=== PATIENT | female | born 1955 | race Caucasian/White ===

== ENCOUNTER → 2022-09-25 | Outpatient (REF) | payer SELFPAY ==
[2022-09-25 17:30] LABS: BASO % 0.7 % (0.0-1.0); EOS % 0.9 % (0.0-3.0); HEMATOCRIT 44.5 % (36.0-47.0); HEMOGLOBIN 14.9 g/dl (12.0-15.5); LYMPH # 1.5 10^3/uL (1.5-5.0); LYMPH % 35.7 % (24.0-44.0); MEAN CORPUSCULAR HEMOGLOBIN 29.8 pg (27.0-33.0); MEAN CORPUSCULAR HGB CONC 33.5 g/dl (32.0-36.5); MONO # 0.4 10^3/uL (0.0-0.8); MONO % 9.6 % (2.0-8.0); NEUTROPHILS # 2.3 10^3/uL (1.5-8.5); NEUTROPHILS % 52.6 % (36.0-66.0); PLATELET COUNT, AUTOMATED 271 10^3/uL (150-450); WHITE BLOOD COUNT 4.3 10^3/uL (4.0-10.0)
[2022-09-25 18:29] LABS: ALBUMIN 3.9 G/DL (3.2-5.2); ALKALINE PHOSPHATASE 57 U/L (46-116); ALT/SGPT 26 U/L (7.0-40); AST/SGOT 15 U/L (<34); BILIRUBIN,TOTAL 0.6 MG/DL (0.3-1.2); BLOOD UREA NITROGEN 34 MG/DL (9-23); CALCIUM LEVEL 10.1 MG/DL (8.3-10.6); CARBON DIOXIDE LEVEL 32 MMOL/L (20-31); CHLORIDE LEVEL 93 MMOL/L (98-107); CHOLESTEROL LEVEL 270 MG/DL (<200); CHOLESTEROL RISK RATIO 4.75 (<5); CREATININE FOR GFR 0.97 MG/DL (0.55-1.30); GLOMERULAR FILTRATION RATE > 60.0 (>45); HDL CHOLESTEROL 56.8 MG/DL (>40); NON-HDL-C 213.2 MG/DL; POTASSIUM SERUM 4.5 MMOL/L (3.5-5.1); SODIUM LEVEL 133 MMOL/L (136-145); THYROID STIMULATING HORMONE 0.996 uIU/ML (0.55-4.78); TOTAL 25(OH) VITAMIN D 31.4 NG/ML (20.0-100.0); TOTAL PROTEIN 6.9 G/DL (5.7-8.2); TRIGLYCERIDES LEVEL 121 MG/DL (<150)
[2022-09-25 19:03] LABS: HEMOGLOBIN A1c > 14.0 % (4.0-6.0)
[2022-09-25 19:55] LABS: GLUCOSE, FASTING 414 MG/DL (74-106)
== END ==
LOC: M LAB REF 16:23
PROVIDERS: ATTEND Nurse Practitioner Family
DX: R00.2 Palpitations (principal); E55.9 Vitamin D deficiency, unspecified; R53.83 Other fatigue; E66.3 Overweight

== ENCOUNTER → 2023-01-29 | Outpatient (REF) | payer SELFPAY | LOC: M LAB REF 16:14 | PROVIDERS: ATTEND Nurse Practitioner Family | DX: Z20.1 Contact with and (suspected) exposure to tuberculosis (principal) ==

== ENCOUNTER → 2023-08-27 | Outpatient (CLI) | payer MEDICAID | LOC: M PLAIMG 09:07 | PROVIDERS: ATTEND Nurse Practitioner Family | DX: R06.00 Dyspnea, unspecified (principal); R06.2 Wheezing ==

== ENCOUNTER → 2023-08-27 | Outpatient (REF) | payer MEDICAID ==
[2023-08-27 14:00] LABS: VITAMIN B12 LEVEL 1085 PG/ML (211-911)
[2023-08-27 14:06] LABS: ALBUMIN 3.7 G/DL (3.2-5.2); ALKALINE PHOSPHATASE 46 U/L (46-116); ALT/SGPT 16 U/L (7.0-40); AST/SGOT 11 U/L (<34); BILIRUBIN,TOTAL 0.5 MG/DL (0.3-1.2); BLOOD UREA NITROGEN 28 MG/DL (9-23); CARBON DIOXIDE LEVEL 30 MMOL/L (20-31); CHLORIDE LEVEL 97 MMOL/L (98-107); CHOLESTEROL LEVEL 113 MG/DL (<200); CREATININE FOR GFR 0.99 MG/DL (0.55-1.30); FOLATE > 24.0 NG/ML (>5.4); GLOMERULAR FILTRATION RATE 59.7 (>45); GLUCOSE, FASTING 470 MG/DL (74-106); HDL CHOLESTEROL 30.5 MG/DL (>40); LDL CHOLESTEROL 64.3 MG/DL (<100); NON-HDL-C 82.5 MG/DL; POTASSIUM SERUM 6.2 MMOL/L (3.5-5.1); SODIUM LEVEL 131 MMOL/L (136-145); TOTAL PROTEIN 6.9 G/DL (5.7-8.2); TRIGLYCERIDES LEVEL 91 MG/DL (<150)
== END ==
LOC: M LAB REF 12:03
PROVIDERS: ATTEND Nurse Practitioner Family
DX: E78.00 Pure hypercholesterolemia, unspecified (principal); M79.89 Other specified soft tissue disorders; E11.40 Type 2 diabetes mellitus with diabetic neuropathy, unspecified

== ENCOUNTER → 2024-01-13 | Outpatient (CLI) | payer MEDICAID | LOC: M CARPUL 10:25 | PROVIDERS: ATTEND Nurse Practitioner Family | DX: I50.9 Heart failure, unspecified (principal) ==

== ENCOUNTER → 2024-01-24 | Outpatient (CLI) | payer MEDICAID | LOC: M WHC 12:55 | PROVIDERS: ATTEND Nurse Practitioner Family | DX: Z12.31 Encounter for screening mammogram for malignant neoplasm of breast (principal); M81.0 Age-related osteoporosis without current pathological fracture ==

== ENCOUNTER → 2024-02-14 | Outpatient (REF) | payer MEDICAID ==
[2024-02-14 13:44] LABS: BLOOD UREA NITROGEN 28 MG/DL (9-23); CALCIUM LEVEL 10.1 MG/DL (8.3-10.6); CARBON DIOXIDE LEVEL 32 MMOL/L (20-31); CHLORIDE LEVEL 101 MMOL/L (98-107); CREATININE FOR GFR 1.15 MG/DL (0.55-1.30); GLOMERULAR FILTRATION RATE > 60.0 (>45); GLUCOSE, FASTING 161 MG/DL (74-106); SODIUM LEVEL 137 MMOL/L (136-145)
[2024-02-14 13:50] LABS: HEMOGLOBIN A1c 7.5 % (4.0-6.0)
== END ==
LOC: M LAB REF 12:25
PROVIDERS: ATTEND Nurse Practitioner Family
DX: E11.9 Type 2 diabetes mellitus without complications (principal)

== ENCOUNTER 2024-03-05 03:57 | Observation (INO) | payer MEDICAID, OTHER ==
[~2024-03-05] VITALS: Ht 157.5 cm; Wt 74.1 kg
[2024-03-05 04:34] LABS: BASO % 0.5 % (0.0-1.0); EOS % 0.7 % (0.0-3.0); HEMATOCRIT 43.6 % (36.0-47.0); HEMOGLOBIN 13.9 g/dl (12.0-15.5); LYMPH # 2.2 10^3/uL (1.5-5.0); LYMPH % 51.3 % (24.0-44.0); MEAN CORPUSCULAR HEMOGLOBIN 29.4 pg (27.0-33.0); MEAN CORPUSCULAR HGB CONC 31.9 g/dl (32.0-36.5); MEAN CORPUSCULAR VOLUME 92.2 fl (80.0-96.0); MONO # 0.4 10^3/uL (0.0-0.8); MONO % 9.2 % (2.0-8.0); NEUTROPHILS # 1.7 10^3/uL (1.5-8.5); NEUTROPHILS % 38.1 % (36.0-66.0); PLATELET COUNT, AUTOMATED 283 10^3/uL (150-450); RED BLOOD COUNT 4.73 10^6/uL (4.00-5.40); WHITE BLOOD COUNT 4.4 10^3/uL (4.0-10.0)
[2024-03-05 04:47] LABS: INR 1.15; PROTHROMBIN TIME 14.4 SECONDS (12.5-14.5)
[2024-03-05 04:51] VITALS: BP 94/70; TEMP 98.4; O2SAT 95
[2024-03-05 05:06] LABS: BLOOD UREA NITROGEN 20 MG/DL (9-23); CALCIUM LEVEL 9.5 MG/DL (8.3-10.6); CARBON DIOXIDE LEVEL 31 MMOL/L (20-31); CHLORIDE LEVEL 110 MMOL/L (98-107); CREATININE FOR GFR 1.07 MG/DL (0.55-1.30); GLOMERULAR FILTRATION RATE > 60.0 (>45); GLUCOSE, FASTING 183 MG/DL (74-106); SODIUM LEVEL 144 MMOL/L (136-145)
[2024-03-05 05:07] LABS: CK-MB VALUE MASS 1.2 NG/ML (<3.6)
[2024-03-05 05:20] LABS: CPK CREATINE PHOSPHOKINASE 116 U/L (34-145); MB/CK RELATIVE INDEX 1.03 (< OR =4)
[2024-03-05 06:08] LABS: CK-MB VALUE MASS 1.2 NG/ML (<3.6)
[2024-03-05 06:13] LABS: MB/CK RELATIVE INDEX 1.18 (< OR =4)
[2024-03-05 08:00] LABS: MAGNESIUM LEVEL 2.2 MG/DL (1.8-2.4)
[2024-03-05] MEDS ORDERED: METF10004 PO (08:15)
[2024-03-05] MEDS ORDERED: ASPI81TA26 PO (08:15)
[2024-03-05] MEDS ORDERED: HUMA100I5 SC (08:15)
[2024-03-05] MEDS ORDERED: OMEP40CA5 PO (08:15)
[2024-03-05] MEDS ORDERED: ENTR1TAB PO (08:15)
[2024-03-05] MEDS ORDERED: CARV12.5 PO (08:15)
[2024-03-05] MEDS ORDERED: FURO20TA2 PO (08:15)
[2024-03-05] MEDS ORDERED: FAMO10TA52 PO (08:15)
[2024-03-05] MEDS ORDERED: JARD1TAB PO (08:15)
[2024-03-05] MEDS ORDERED: ACET650T15 PO (08:15)
[2024-03-05] MEDS ORDERED: GABA-1171 PO (08:15)
[2024-03-05] MEDS ORDERED: LANTINJ4 SC (08:15)
[2024-03-05] MEDS ORDERED: HOME MED LIST COMPLETE! XX SCH (08:20)
[2024-03-05] MEDS: MECLIZINE 25 MG TABLET PO ONE (08:29)
[2024-03-05] MEDS: NS 1,000 ML IV ONE (08:29)
[2024-03-05] MEDS: diazePAM 2 MG TAB PO ONE (10:16)
[2024-03-05] MEDS ORDERED: GLUCOSE 4 GM CHEW PO PRN (13:00)
[2024-03-05] MEDS ORDERED: GLUCAGON INJ 1MG VIAL SC PRN (13:00)
[2024-03-05] MEDS ORDERED: ACETAMINOPHEN TAB 650MG DOSE (2X325MG) PO PRN (13:00)
[2024-03-05] MEDS ORDERED: MAALOX 30 ML SUSP *UDC PO PRN (13:00)
[2024-03-05] MEDS ORDERED: MOM 30ML SUSPENSION UDC PO PRN (13:00)
[2024-03-05] MEDS ORDERED: DEXTROSE 50% 50ML SYRINGE IV PRN (13:00)
[2024-03-05] MEDS ORDERED: PILL CUTTER 1 EACH XX PRN (13:40)
[2024-03-05 15:54] VITALS: BP_SYST 100; BP_SYST 101; BP_SYST 105; BP_DIAS 64; BP_DIAS 74
[2024-03-05 15:56] VITALS: BP 101/64; TEMP 96.9; O2SAT 97
[2024-03-05] MEDS: HEPARIN SOD (PORCINE) 5000UNITS/ML 1ML VIAL/SYRINGE SC SCH (15:57)
[2024-03-05] MEDS: INSULIN LISPRO (NovoLOG) PER UNIT SC SCH ×2 (17:06→21:00)
[2024-03-05 19:56] VITALS: BP 118/70; TEMP 96.8; O2SAT 97
[2024-03-05] MEDS: LEVEMIR (INSULIN DETEMIR) 1 UNITS/0.01ML SC SCH (20:41)
[2024-03-05] MEDS: GABAPENTIN 100 MG CAP PO SCH (20:41)
[2024-03-05] MEDS: CARVedilol 12.5 MG TAB PO SCH (20:41)
[2024-03-05] MEDS: ASPIRIN 81MG ENTERIC TABLET PO SCH (20:42)
[2024-03-05] MEDS: FAMOTIDINE 20 MG TAB PO SCH (20:42)
[2024-03-05] MEDS: DOCUSATE SODIUM 100MG CAPSULE PO SCH (21:00)
[2024-03-05 23:55] VITALS: BP 96/62; TEMP 97.1; O2SAT 97
[2024-03-06 04:00] VITALS: BP 103/67; TEMP 97.5; O2SAT 99
[2024-03-06 07:41] VITALS: BP 103/63; TEMP 96.7; O2SAT 98
[2024-03-06 07:44] LABS: BASO % 0.2 % (0.0-1.0); EOS # 0.1 10^3/uL (0.0-0.5); EOS % 1.7 % (0.0-3.0); HEMATOCRIT 39.3 % (36.0-47.0); HEMOGLOBIN 12.6 g/dl (12.0-15.5); LYMPH # 1.6 10^3/uL (1.5-5.0); LYMPH % 34.5 % (24.0-44.0); MEAN CORPUSCULAR HEMOGLOBIN 29.1 pg (27.0-33.0); MEAN CORPUSCULAR HGB CONC 32.1 g/dl (32.0-36.5); MEAN CORPUSCULAR VOLUME 90.8 fl (80.0-96.0); MONO # 0.5 10^3/uL (0.0-0.8); MONO % 9.5 % (2.0-8.0); NEUTROPHILS # 2.6 10^3/uL (1.5-8.5); NEUTROPHILS % 53.7 % (36.0-66.0); PLATELET COUNT, AUTOMATED 257 10^3/uL (150-450); RED BLOOD COUNT 4.33 10^6/uL (4.00-5.40); WHITE BLOOD COUNT 4.8 10^3/uL (4.0-10.0)
[2024-03-06 08:18] LABS: BLOOD UREA NITROGEN 13 MG/DL (9-23); CALCIUM LEVEL 9.1 MG/DL (8.3-10.6); CARBON DIOXIDE LEVEL 31 MMOL/L (20-31); CHLORIDE LEVEL 108 MMOL/L (98-107); CREATININE FOR GFR 0.86 MG/DL (0.55-1.30); GLOMERULAR FILTRATION RATE > 60.0 (>45); GLUCOSE, FASTING 159 MG/DL (74-106); POTASSIUM SERUM 5.4 MMOL/L (3.5-5.1); SODIUM LEVEL 140 MMOL/L (136-145)
[2024-03-06 08:43] VITALS: BP 103/63
[2024-03-06] MEDS: FUROSEMIDE 20 MG TAB PO SCH (08:43)
[2024-03-06] MEDS: ENTRESTO 24-26MG TABLET (SACUBITRIL/VALSARTAN) PO SCH (08:43)
[2024-03-06] MEDS: OMEPRAZOLE 20MG CAP PO SCH (08:52)
[2024-03-06] MEDS ORDERED: SOD POLYSTYRENE SULFONATE SUSP 15GM 60ML UD PO ONE (09:25)
[2024-03-06] MEDS: PATIROMER SORBITEX CALCIUM 8.4 GM POWDER PACKET (VELTASSA) PO ONE (11:07)
[2024-03-06 11:26] VITALS: BP 107/68; TEMP 97.5; O2SAT 97
[2024-03-06] MEDS ORDERED: FUROSEMIDE 40 MG TAB PO ONE (14:00)
[2024-03-06 14:14] VITALS: BP 115/74
[2024-03-06] MEDS: SOD POLYSTYRENE SULFONATE SUSP 15GM 60ML UD PO ONE (14:16)
[2024-03-06] MEDS: FUROSEMIDE 20MG/2ML VIAL IV ONE (14:16)
[2024-03-06 15:51] VITALS: BP 105/66; TEMP 98.3; O2SAT 97
== END 2024-03-06 18:04 | disposition home or self-care (01) ==
LOC: M ED 03:57 → M ED INP 03:58 → UNDOADMOB 13:22 → M PCU 15:31 → M ED INP 15:31
PROVIDERS: ADMIT Internal Medicine; ATTEND Internal Medicine
DX: R42 Dizziness and giddiness (principal); I42.9 Cardiomyopathy, unspecified; I11.0 Hypertensive heart disease with heart failure; E11.9 Type 2 diabetes mellitus without complications; E87.5 Hyperkalemia; E78.5 Hyperlipidemia, unspecified; K21.9 Gastro-esophageal reflux disease without esophagitis; R11.2 Nausea with vomiting, unspecified; I50.22 Chronic systolic (congestive) heart failure; Z98.61 Coronary angioplasty status; Z86.16 Personal history of COVID-19; Z79.899 Other long term (current) drug therapy; Z79.82 Long term (current) use of aspirin; Z79.84 Long term (current) use of oral hypoglycemic drugs
CPT/HCPCS: 36415; 70450; 70544; 70551; 71045; 80048; 81001; 82550; 82553; 83735; 84132; 84484; 85025; 85610; 85730; 93005; 93041; 94760; 96374; 97161; 99285; J1815; J1940

== ENCOUNTER → 2024-08-06 | Outpatient (REF) | payer OTHER ==
[~2024-08-06] MED LIST: ACET650T15 PO; ASPI81TA26 PO; CARV12.5 PO; ENTR1TAB PO; FAMO10TA52 PO; FURO20TA2 PO; GABA-1171 PO; HUMA100I5 SC; JARD1TAB PO; LANTINJ4 SC; METF10004 PO; OMEP40CA5 PO
[2024-08-06 15:20] LABS: CHOLESTEROL RISK RATIO 3.09 (<5); HDL CHOLESTEROL 37.1 MG/DL (>40); LDL CHOLESTEROL 64.9 MG/DL (<100); NON-HDL-C 77.9 MG/DL
[2024-08-06 15:23] LABS: THYROID STIMULATING HORMONE 1.328 uIU/ML (0.55-4.78)
[2024-08-06 16:05] LABS: HEMOGLOBIN A1c 7.4 % (4.0-6.0)
== END ==
LOC: M LAB REF 12:52
PROVIDERS: ATTEND Nurse Practitioner Family
DX: E11.9 Type 2 diabetes mellitus without complications (principal); E66.9 Obesity, unspecified

== ENCOUNTER → 2024-08-07 | Outpatient (CLI) | payer OTHER | LOC: M SOG 07:53 | PROVIDERS: ATTEND Physician Assistant | DX: Z53.9 Procedure and treatment not carried out, unspecified reason (principal) ==

== ENCOUNTER → 2024-08-11 | Outpatient (CLI) | payer OTHER | LOC: M SOG 07:55 | PROVIDERS: ATTEND Physician Assistant | DX: M79.644 Pain in right finger(s) (principal); M19.041 Primary osteoarthritis, right hand ==

== ENCOUNTER → 2024-10-13 | Outpatient (CLI) | payer OTHER ==
[2024-10-13 09:34] LABS: BASO % 0.4 % (0.0-1.0); EOS % 0.6 % (0.0-3.0); HEMATOCRIT 42.2 % (36.0-47.0); HEMOGLOBIN 13.5 g/dl (12.0-15.5); LYMPH # 1.3 10^3/uL (1.5-5.0); LYMPH % 27.7 % (24.0-44.0); MEAN CORPUSCULAR HEMOGLOBIN 28.7 pg (27.0-33.0); MEAN CORPUSCULAR VOLUME 89.8 fl (80.0-96.0); MONO # 0.4 10^3/uL (0.0-0.8); MONO % 9.2 % (2.0-8.0); NEUTROPHILS # 2.9 10^3/uL (1.5-8.5); NEUTROPHILS % 61.9 % (36.0-66.0); PLATELET COUNT, AUTOMATED 246 10^3/uL (150-450); WHITE BLOOD COUNT 4.7 10^3/uL (4.0-10.0)
[2024-10-13 10:01] LABS: CALCIUM LEVEL 9.3 MG/DL (8.3-10.6); CREATININE FOR GFR 0.93 MG/DL (0.55-1.30); GLOMERULAR FILTRATION RATE 67.4 (>45); POTASSIUM SERUM 4.5 MMOL/L (3.5-5.1)
== END ==
LOC: M LAB 09:03
PROVIDERS: ATTEND Internal Medicine Clinical Cardiac Electrophysiology
DX: I42.9 Cardiomyopathy, unspecified (principal)

== ENCOUNTER 2025-02-12 10:26 | Inpatient (IN) | payer OTHER ==
[~2025-02-12] VITALS: Ht 157.5 cm; Wt 78.6 kg
[~2025-02-12 10:26] MED LIST changes: +ACET-1515 PO; -ACET650T15 PO
[2025-02-12 11:45] LABS: BASO # 0.0 10^3/uL (0.0-0.2); BASO % 0.4 % (0.0-1.0); EOS # 0.1 10^3/uL (0.0-0.5); EOS % 1.4 % (0.0-3.0); LYMPH # 1.1 10^3/uL (1.5-5.0); LYMPH % 15.3 % (24.0-44.0); MONO # 0.4 10^3/uL (0.0-0.8); MONO % 5.6 % (2.0-8.0); NEUTROPHILS # 5.3 10^3/uL (1.5-8.5); NEUTROPHILS % 77.0 % (36.0-66.0); PLATELET COUNT, AUTOMATED 229 10^3/uL (150-450)
[2025-02-12 12:07] LABS: ALT/SGPT 98.0 U/L (7.0-40); AST/SGOT 86.0 U/L (<34); CALCIUM LEVEL 8.5 MG/DL (8.3-10.6); CARBON DIOXIDE LEVEL 28.0 MMOL/L (20-31); CHLORIDE LEVEL 105.0 MMOL/L (98-107); CREATININE FOR GFR 0.95 MG/DL (0.55-1.30); GLOMERULAR FILTRATION RATE 65.7 (>45); POTASSIUM SERUM 4.9 MMOL/L (3.5-5.1); SODIUM LEVEL 142.0 MMOL/L (136-145)
[2025-02-12] MEDS ORDERED: ATOR40TA75 PO (18:41)
[2025-02-12] MEDS ORDERED: HOME MED LIST COMPLETE! XX SCH (18:45)
[2025-02-12] MEDS ORDERED: ACETAMINOPHEN 325 MG TAB PO PRN (19:25)
[2025-02-12] MEDS ORDERED: ALBUTEROL SULFATE 2.5 MG/0.5 ML INH CONCENTRATE NEB SOLN NEB PRN (19:25)
[2025-02-12] MEDS ORDERED: GLUCAGON INJ 1 MG VIAL SC PRN (19:30)
[2025-02-12] MEDS ORDERED: GLUCOSE 4 GM CHEW PO PRN (19:30)
[2025-02-12] MEDS ORDERED: DEXTROSE 50% 50 ML SYRINGE IV PRN (19:30)
[2025-02-12] MEDS: DOXYCYCLINE HYCLATE 100 MG TABLET PO ONE (19:35)
[2025-02-12] MEDS: cefTRIAXone SOD 1 GM in DEXTROSE 5% (D5W) ADV/MINI-BAG 50 ML IV ONE (19:35)
[2025-02-12] MEDS: INSULIN LISPRO (NovoLOG) PER UNIT SC SCH (21:00)
[2025-02-12] MEDS: DOCUSATE SODIUM 100 MG CAPSULE PO SCH (21:19)
[2025-02-13 06:01] LABS: BASO # 0.0 10^3/uL (0.0-0.2); BASO % 0.4 % (0.0-1.0); EOS # 0.1 10^3/uL (0.0-0.5); EOS % 1.5 % (0.0-3.0); LYMPH # 1.0 10^3/uL (1.5-5.0); LYMPH % 19.7 % (24.0-44.0); MONO # 0.5 10^3/uL (0.0-0.8); MONO % 9.8 % (2.0-8.0); NEUTROPHILS # 3.6 10^3/uL (1.5-8.5); NEUTROPHILS % 68.2 % (36.0-66.0); PLATELET COUNT, AUTOMATED 243 10^3/uL (150-450)
[2025-02-13 06:27] LABS: CALCIUM LEVEL 8.6 MG/DL (8.3-10.6); CARBON DIOXIDE LEVEL 28.0 MMOL/L (20-31); CHLORIDE LEVEL 105.0 MMOL/L (98-107); CREATININE FOR GFR 0.88 MG/DL (0.55-1.30); GLOMERULAR FILTRATION RATE 72.0 (>45); POTASSIUM SERUM 4.2 MMOL/L (3.5-5.1); SODIUM LEVEL 144.0 MMOL/L (136-145)
[2025-02-13] MEDS: INSULIN LISPRO (NovoLOG) PER UNIT SC SCH (08:15)
[2025-02-13] MEDS ORDERED: PILL CUTTER 1 EACH XX ONE (08:35)
[2025-02-13] MEDS: OMEPRAZOLE 20MG CAP PO SCH (08:37)
[2025-02-13] MEDS: FAMOTIDINE 20 MG TAB PO SCH (08:38)
[2025-02-13] MEDS: DOXYCYCLINE HYCLATE 100 MG TABLET PO SCH (08:40)
[2025-02-13] MEDS: ASPIRIN 81 MG ENTERIC TABLET PO SCH (08:43)
[2025-02-13] MEDS: GABAPENTIN 100 MG CAP PO SCH (08:44)
[2025-02-13] MEDS: ATORVASTATIN 20 MG TAB PO SCH (08:44)
[2025-02-13] MEDS: ENOXAPARIN 40 MG/0.4 ML SYRINGE (J1650 PER 10MG) SC SCH (08:45)
[2025-02-13] MEDS ORDERED: TORSEMIDE 20 MG TAB PO SCH (09:00)
[2025-02-13] MEDS: FUROSEMIDE 40 MG/4 ML VIAL IV ONE (09:00)
[2025-02-13] MEDS: cefTRIAXone SOD 1 GM in DEXTROSE 5% (D5W) ADV/MINI-BAG 50 ML IV SCH (17:25)
[2025-02-13] MEDS: LanTUS (INSULIN GLARGINE INJ) 1 UNITS/0.01 ML SC SCH (22:14)
[2025-02-14 06:38] LABS: BASO # 0.0 10^3/uL (0.0-0.2); BASO % 0.5 % (0.0-1.0); EOS # 0.1 10^3/uL (0.0-0.5); EOS % 2.6 % (0.0-3.0); LYMPH # 1.1 10^3/uL (1.5-5.0); LYMPH % 26.2 % (24.0-44.0); MONO # 0.5 10^3/uL (0.0-0.8); MONO % 12.1 % (2.0-8.0); NEUTROPHILS # 2.4 10^3/uL (1.5-8.5); NEUTROPHILS % 58.1 % (36.0-66.0); PLATELET COUNT, AUTOMATED 262 10^3/uL (150-450)
[2025-02-14 07:18] LABS: CALCIUM LEVEL 8.1 MG/DL (8.3-10.6); CARBON DIOXIDE LEVEL 29.0 MMOL/L (20-31); CHLORIDE LEVEL 104.0 MMOL/L (98-107); CREATININE FOR GFR 0.94 MG/DL (0.55-1.30); GLOMERULAR FILTRATION RATE 66.5 (>45); POTASSIUM SERUM 4.4 MMOL/L (3.5-5.1); SODIUM LEVEL 142.0 MMOL/L (136-145)
[2025-02-14 09:58] VITALS: BP 100/75; TEMP 97.2; O2SAT 85; O2SAT 98
[2025-02-14 10:00] VITALS: O2SAT 98
[2025-02-14] MEDS: COMBIVENT RESPIMAT 100-20 MCG INHALER 4 GM INH SCH (10:54)
[2025-02-14 12:00] VITALS: BP 100/73; TEMP 97.5; O2SAT 99
[2025-02-14] MEDS: TORSEMIDE 20 MG TAB PO SCH (12:14)
[2025-02-14 20:00] VITALS: BP 101/72; TEMP 97.5; O2SAT 98
[2025-02-14 22:53] VITALS: BP 106/73
[2025-02-15 04:00] VITALS: BP 117/76; TEMP 97.9; O2SAT 97
[2025-02-15 06:06] LABS: BASO # 0.0 10^3/uL (0.0-0.2); BASO % 0.7 % (0.0-1.0); EOS # 0.3 10^3/uL (0.0-0.5); EOS % 7.2 % (0.0-3.0); LYMPH # 1.5 10^3/uL (1.5-5.0); LYMPH % 33.9 % (24.0-44.0); MONO # 0.5 10^3/uL (0.0-0.8); MONO % 10.8 % (2.0-8.0); NEUTROPHILS # 2.1 10^3/uL (1.5-8.5); NEUTROPHILS % 47.2 % (36.0-66.0); PLATELET COUNT, AUTOMATED 263 10^3/uL (150-450)
[2025-02-15 06:35] LABS: CALCIUM LEVEL 8.0 MG/DL (8.3-10.6); CARBON DIOXIDE LEVEL 32.0 MMOL/L (20-31); CHLORIDE LEVEL 102.0 MMOL/L (98-107); CREATININE FOR GFR 1.13 MG/DL (0.55-1.30); GLOMERULAR FILTRATION RATE 53.3 (>45); POTASSIUM SERUM 4.6 MMOL/L (3.5-5.1); SODIUM LEVEL 143.0 MMOL/L (136-145)
[2025-02-15] MEDS: FUROSEMIDE 40 MG/4 ML VIAL IV ONE (08:00)
[2025-02-15] MEDS: dexAMETHasone 4 MG/ML 1 ML VIAL IV SCH (11:02)
[2025-02-15 11:06] VITALS: BP 98/64
[2025-02-15] MEDS: LEVALBUTEROL 1.25 MG 0.5ML CONCENTRATE NEB INH SCH (11:34)
[2025-02-15 12:00] VITALS: BP 105/66; TEMP 96.8; O2SAT 97
[2025-02-15] MEDS: guaiFENesin ER TABLET 600 MG TAB PO SCH (12:02)
[2025-02-15] MEDS: SYMBICORT 160/4.5MCG INHALER 6GM INH SCH (19:59)
[2025-02-15 20:00] VITALS: BP 108/67; TEMP 97.2; O2SAT 98
[2025-02-15] MEDS: LanTUS (INSULIN GLARGINE INJ) 1 UNITS/0.01 ML SC SCH (21:24)
[2025-02-15] MEDS: CEFDINIR 300 MG CAP PO SCH (21:27)
[2025-02-16 04:00] VITALS: BP 105/66; TEMP 97.9; O2SAT 97
[2025-02-16 06:34] LABS: BASO # 0.0 10^3/uL (0.0-0.2); BASO % 0.2 % (0.0-1.0); EOS # 0.0 10^3/uL (0.0-0.5); EOS % 0.0 % (0.0-3.0); LYMPH # 0.6 10^3/uL (1.5-5.0); LYMPH % 9.4 % (24.0-44.0); MONO # 0.4 10^3/uL (0.0-0.8); MONO % 6.6 % (2.0-8.0); NEUTROPHILS # 5.2 10^3/uL (1.5-8.5); NEUTROPHILS % 83.5 % (36.0-66.0); PLATELET COUNT, AUTOMATED 262 10^3/uL (150-450)
[2025-02-16 07:02] LABS: CALCIUM LEVEL 8.4 MG/DL (8.3-10.6); CARBON DIOXIDE LEVEL 28.0 MMOL/L (20-31); CHLORIDE LEVEL 102.0 MMOL/L (98-107); CREATININE FOR GFR 0.89 MG/DL (0.55-1.30); GLOMERULAR FILTRATION RATE 71.0 (>45); POTASSIUM SERUM 5.2 MMOL/L (3.5-5.1); SODIUM LEVEL 140.0 MMOL/L (136-145)
[2025-02-16 08:32] VITALS: BP 104/71
[2025-02-16 11:32] VITALS: BP 103/72; TEMP 97; O2SAT 93
[2025-02-16] MEDS ORDERED: CEFD300CAP PO (13:13)
[2025-02-16] MEDS ORDERED: PRED20TA PO (13:13)
[2025-02-16] MEDS ORDERED: DOXY100T PO (13:13)
[2025-02-16] MEDS ORDERED: PROB250C PO (13:15)
[2025-02-16] MEDS ORDERED: VENTAER INH (13:17)
[2025-02-17] MEDS ORDERED: predniSONE 20 MG TAB PO SCH (09:00)
== END 2025-02-16 15:06 | disposition home or self-care (01) | DRG 139 ==
LOC: M ED 10:26 → M ED INP 19:24 → M MSPAV 02-14 09:28
PROVIDERS: ADMIT Internal Medicine Nephrology; ATTEND Internal Medicine
DX: J18.9 Pneumonia, unspecified organism (principal); I11.0 Hypertensive heart disease with heart failure; I42.0 Dilated cardiomyopathy; I50.22 Chronic systolic (congestive) heart failure; E11.40 Type 2 diabetes mellitus with diabetic neuropathy, unspecified; E87.5 Hyperkalemia; J44.0 Chronic obstructive pulmonary disease with (acute) lower respiratory infection; J44.1 Chronic obstructive pulmonary disease with (acute) exacerbation; K76.0 Fatty (change of) liver, not elsewhere classified; J42 Unspecified chronic bronchitis; K21.9 Gastro-esophageal reflux disease without esophagitis; I44.7 Left bundle-branch block, unspecified; R74.01 Elevation of levels of liver transaminase levels; Z95.810 Presence of automatic (implantable) cardiac defibrillator; Z79.82 Long term (current) use of aspirin; Z79.4 Long term (current) use of insulin; Z79.899 Other long term (current) drug therapy

== ENCOUNTER → 2025-03-11 | Outpatient (CLI) | payer MEDICAID, OTHER ==
[~2025-03-11] MED LIST changes: +ATOR40TA75 PO; +CEFD300CAP PO; +DOXY100T PO; +PRED20TA PO; +PROB250C PO; +VENTAER INH
[2025-03-11 10:27] LABS: ESTIMATED AVERAGE GLUCOSE 260.0 MG/DL (60-110)
[2025-03-11 10:49] LABS: ALT/SGPT 19.0 U/L (7.0-40); AST/SGOT 20.0 U/L (<34); CALCIUM LEVEL 9.8 MG/DL (8.3-10.6); CARBON DIOXIDE LEVEL 33.0 MMOL/L (20-31); CHLORIDE LEVEL 101.0 MMOL/L (98-107); CREATININE FOR GFR 1.04 MG/DL (0.55-1.30); GLOMERULAR FILTRATION RATE 58.9 (>45); POTASSIUM SERUM 4.7 MMOL/L (3.5-5.1); SODIUM LEVEL 143.0 MMOL/L (136-145)
== END ==
LOC: M LAB 08:58
PROVIDERS: ATTEND Nurse Practitioner Family
DX: R74.01 Elevation of levels of liver transaminase levels (principal); E11.9 Type 2 diabetes mellitus without complications

== ENCOUNTER → 2025-04-05 | Outpatient (REF) | payer OTHER ==
[2025-04-05 15:50] LABS: CREATININE, URINE 24.6 MG/DL
[2025-04-05 15:51] LABS: MALB URINE SIEMENS < 3.0 MG/L
== END ==
LOC: M LAB REF 14:14
PROVIDERS: ATTEND Nurse Practitioner Family
DX: E11.9 Type 2 diabetes mellitus without complications (principal)

== ENCOUNTER → 2025-05-03 | Outpatient (REF) | payer OTHER ==
[2025-05-03 13:49] LABS: CREATININE, URINE 29.5 MG/DL; MALB URINE SIEMENS 6.0 MG/L; MAU/CREAT RATIO 20.3 MCG/MG (0.0-30.0)
[2025-05-03 15:11] LABS: ALT/SGPT 56.0 U/L (7.0-40); AST/SGOT 38.0 U/L (<34)
[2025-05-03 15:27] LABS: ESTIMATED AVERAGE GLUCOSE 240.0 MG/DL (60-110)
== END ==
LOC: M LAB REF 12:21
PROVIDERS: ATTEND Nurse Practitioner Family
DX: E11.9 Type 2 diabetes mellitus without complications (principal); R74.01 Elevation of levels of liver transaminase levels

== ENCOUNTER 2025-06-16 14:38 | Inpatient (IN) | payer MEDICAID, SELFPAY ==
[~2025-06-16] VITALS: Ht 165.1 cm; Wt 75.6 kg
[2025-06-16] MEDS: ASPIRIN 81 MG CHEWABLE TABLET PO ONE (15:27)
[2025-06-16] MEDS: NITROGLYCERIN 0.4 MG SUBL TABLET SL PRN (15:27)
[2025-06-16 15:30] LABS: BASO # 0.0 10^3/uL (0.0-0.2); BASO % 0.8 % (0.0-1.0); EOS # 0.1 10^3/uL (0.0-0.5); EOS % 2.3 % (0.0-3.0); LYMPH # 1.2 10^3/uL (1.5-5.0); LYMPH % 29.6 % (24.0-44.0); MONO # 0.5 10^3/uL (0.0-0.8); MONO % 11.4 % (2.0-8.0); NEUTROPHILS # 2.2 10^3/uL (1.5-8.5); NEUTROPHILS % 55.9 % (36.0-66.0); PLATELET COUNT, AUTOMATED 224 10^3/uL (150-450)
[2025-06-16 15:52] LABS: INR 1.21
[2025-06-16 16:04] LABS: CPK CREATINE PHOSPHOKINASE 167.0 U/L (34-145)
[2025-06-16 16:05] LABS: ALT/SGPT 71.0 U/L (7.0-40); AST/SGOT 69.0 U/L (<34); CALCIUM LEVEL 8.6 MG/DL (8.3-10.6); CARBON DIOXIDE LEVEL 27.0 MMOL/L (20-31); CHLORIDE LEVEL 106.0 MMOL/L (98-107); CK-MB VALUE MASS 2.5 NG/ML (<3.6); CREATININE FOR GFR 1.13 MG/DL (0.55-1.30); FREE T4 1.22 NG/DL (0.89-1.76); GLOMERULAR FILTRATION RATE 53.3 (>45); MB/CK RELATIVE INDEX 1.49 (< OR =4); POTASSIUM SERUM 4.2 MMOL/L (3.5-5.1); SODIUM LEVEL 142.0 MMOL/L (136-145)
[2025-06-16] MEDS ORDERED: ISOVUE-370 76% 100 ML VIAL As Ordered ONE (16:34)
[2025-06-16 16:50] LABS: CK-MB VALUE MASS 2.7 NG/ML (<3.6)
[2025-06-16 16:52] LABS: CPK CREATINE PHOSPHOKINASE 150.0 U/L (34-145); MB/CK RELATIVE INDEX 1.8 (< OR =4)
[2025-06-16] MEDS ORDERED: IPRATROPIUM 0.5 MG/ALBUTEROL 2.5 MG INH SOL UD 3 ML NEB PRN (17:50)
[2025-06-16] MEDS: FUROSEMIDE 100 MG/10 ML VIAL IV ONE (18:16)
[2025-06-16 19:14] LABS: CK-MB VALUE MASS 2.4 NG/ML (<3.6)
[2025-06-16 19:16] LABS: C REACTIVE PROTEIN QUANTITATIV 0.76 MG/DL (<1.0); CPK CREATINE PHOSPHOKINASE 160.0 U/L (34-145); MB/CK RELATIVE INDEX 1.5 (< OR =4)
[2025-06-16] MEDS: IPRATROPIUM 0.5 MG/ALBUTEROL 2.5 MG INH SOL UD 3 ML NEB SCH (20:05)
[2025-06-16] MEDS ORDERED: FAMO1TAB11 PO (21:06)
[2025-06-16] MEDS ORDERED: CARV6.25 PO (21:07)
[2025-06-16] MEDS ORDERED: METF-838 PO (21:10)
[2025-06-16] MEDS ORDERED: NITR0.4S14 SL (21:10)
[2025-06-16] MEDS ORDERED: ALBU8.5H INH (21:11)
[2025-06-16] MEDS ORDERED: HOME MED LIST COMPLETE! XX SCH (21:15)
[2025-06-16 22:03] VITALS: BP 113/74; TEMP 97.9; O2SAT 97
[2025-06-16 23:43] VITALS: BP 99/73; TEMP 97.6; O2SAT 96
[2025-06-17] VITALS (7 sets, daily range): BP systolic 100–114; BP diastolic 62–73; TEMP 97.1–98.8; O2SAT 95–100
[2025-06-17 05:28] LABS: PLATELET COUNT, AUTOMATED 230 10^3/uL (150-450)
[2025-06-17 05:53] LABS: ALT/SGPT 65.0 U/L (7.0-40); AST/SGOT 46.0 U/L (<34); CALCIUM LEVEL 9.0 MG/DL (8.3-10.6); CARBON DIOXIDE LEVEL 29.0 MMOL/L (20-31); CHLORIDE LEVEL 103.0 MMOL/L (98-107); CREATININE FOR GFR 0.95 MG/DL (0.55-1.30); GLOMERULAR FILTRATION RATE 65.7 (>45); POTASSIUM SERUM 3.5 MMOL/L (3.5-5.1); SODIUM LEVEL 142.0 MMOL/L (136-145)
[2025-06-17] MEDS ORDERED: GLUCOSE 4 GM CHEW PO PRN (06:20)
[2025-06-17] MEDS ORDERED: DEXTROSE 50% 50 ML SYRINGE IV PRN (06:20)
[2025-06-17] MEDS ORDERED: NITROGLYCERIN 0.4 MG SUBL TABLET SL PRN (06:20)
[2025-06-17] MEDS ORDERED: GLUCAGON INJ 1 MG VIAL SC PRN (06:20)
[2025-06-17] MEDS: FUROSEMIDE 40 MG/4 ML VIAL IV SCH ×2 (08:50→18:37)
[2025-06-17 08:59] LABS: MAGNESIUM LEVEL 1.8 MG/DL (1.8-2.4)
[2025-06-17] MEDS: FUROSEMIDE 20 MG/2 ML VIAL IV ONE (09:27)
[2025-06-17] MEDS: INSULIN LISPRO (NovoLOG) PER UNIT SC SCH ×2 (09:28→21:00)
[2025-06-17] MEDS: ENOXAPARIN 40 MG/0.4 ML SYRINGE (J1650 PER 10MG) SC SCH (09:28)
[2025-06-17] MEDS: FAMOTIDINE 20 MG TAB PO SCH (09:29)
[2025-06-17] MEDS: OMEPRAZOLE 20MG CAP PO SCH (09:29)
[2025-06-17] MEDS: GABAPENTIN 100 MG CAP PO SCH (09:29)
[2025-06-17] MEDS: POTASSIUM CHLORIDE 10MEQ SR TABLET PO ONE (09:29)
[2025-06-17] MEDS: ATORVASTATIN 20 MG TAB PO SCH (09:29)
[2025-06-17] MEDS: LanTUS (INSULIN GLARGINE INJ) 1 UNITS/0.01 ML SC SCH (21:15)
[2025-06-17] MEDS: ASPIRIN 81 MG ENTERIC TABLET PO SCH (21:16)
[2025-06-17] MEDS: ACETAMINOPHEN 650 MG ER TAB PO PRN (21:58)
[2025-06-18] VITALS (7 sets, daily range): BP systolic 95–124; BP diastolic 62–77; TEMP 97–98.9; O2SAT 92–97
[2025-06-18 05:44] LABS: PLATELET COUNT, AUTOMATED 214 10^3/uL (150-450)
[2025-06-18 06:02] LABS: ALT/SGPT 48.0 U/L (7.0-40); AST/SGOT 25.0 U/L (<34); CALCIUM LEVEL 8.6 MG/DL (8.3-10.6); CARBON DIOXIDE LEVEL 32.0 MMOL/L (20-31); CHLORIDE LEVEL 104.0 MMOL/L (98-107); CREATININE FOR GFR 1.09 MG/DL (0.55-1.30); GLOMERULAR FILTRATION RATE 55.7 (>45); POTASSIUM SERUM 4.2 MMOL/L (3.5-5.1); SODIUM LEVEL 144.0 MMOL/L (136-145)
[2025-06-18] MEDS: FUROSEMIDE injection 100 MG, VIAL 2 BAG 13MM ADAPTER 1 EACH in NS 100 ML IV SCH (13:21)
[2025-06-19] VITALS (8 sets, daily range): BP systolic 90–106; BP diastolic 54–87; TEMP 97–97.7; O2SAT 95–100
[2025-06-19 06:03] LABS: PLATELET COUNT, AUTOMATED 248 10^3/uL (150-450)
[2025-06-19 06:30] LABS: ALT/SGPT 45.0 U/L (7.0-40); AST/SGOT 22.0 U/L (<34); CALCIUM LEVEL 9.5 MG/DL (8.3-10.6); CARBON DIOXIDE LEVEL 33.0 MMOL/L (20-31); CHLORIDE LEVEL 99.0 MMOL/L (98-107); CREATININE FOR GFR 1.01 MG/DL (0.55-1.30); GLOMERULAR FILTRATION RATE 61.0 (>45); IRON (FE) 42.0 UG/DL (50-170); PERCENT SATURATION 13.0 % (13.2-45.0); POTASSIUM SERUM 4.2 MMOL/L (3.5-5.1); SODIUM LEVEL 141.0 MMOL/L (136-145)
[2025-06-19] MEDS: ACETAMINOPHEN 650 MG ER TAB PO SCH (08:37)
[2025-06-19 09:08] LABS: MAGNESIUM LEVEL 1.8 MG/DL (1.8-2.4)
[2025-06-19] MEDS: FERRIC CARBOXYMALTOSE INJ 750 MG, VIAL MATE ADAPTER 1 EACH in NS 100 ML IV ONE (13:31)
[2025-06-19] MEDS: DAPAGLIFLOZIN PROPANEDIOL 10 MG TABLET PO SCH (14:54)
[2025-06-20 00:02] VITALS: BP 102/68; TEMP 97; O2SAT 95
[2025-06-20 03:52] VITALS: BP 100/60; TEMP 97.8; O2SAT 93
[2025-06-20 06:09] LABS: PLATELET COUNT, AUTOMATED 255 10^3/uL (150-450)
[2025-06-20 06:43] LABS: ALT/SGPT 37.0 U/L (7.0-40); AST/SGOT 19.0 U/L (<34); CALCIUM LEVEL 10.5 MG/DL (8.3-10.6); CARBON DIOXIDE LEVEL 34.0 MMOL/L (20-31); CHLORIDE LEVEL 96.0 MMOL/L (98-107); CREATININE FOR GFR 1.23 MG/DL (0.55-1.30); GLOMERULAR FILTRATION RATE 48.2 (>45); POTASSIUM SERUM 4.0 MMOL/L (3.5-5.1); SODIUM LEVEL 141.0 MMOL/L (136-145)
[2025-06-20 07:22] VITALS: BP 102/67; TEMP 97.6; O2SAT 94
[2025-06-20 08:45] VITALS: BP 102/67
[2025-06-20] MEDS: SIMETHICONE 80MG CHEW TAB PO SCH (08:48)
[2025-06-20 12:00] VITALS: BP 110/64; TEMP 97.6; O2SAT 96
== END 2025-06-20 13:38 | disposition home or self-care (01) | DRG 194 ==
LOC: M ED 14:38 → M ED INP 17:46 → M PCU 21:59
PROVIDERS: ADMIT Internal Medicine; ATTEND Internal Medicine
PROC: B246ZZZ Ultrasonography of Right and Left Heart (ICD-10-PCS; principal; 2025-06-17)
DX: I50.23 Acute on chronic systolic (congestive) heart failure (principal); E87.3 Alkalosis; I31.39 Other pericardial effusion (noninflammatory); I42.0 Dilated cardiomyopathy; I51.7 Cardiomegaly; R74.01 Elevation of levels of liver transaminase levels; K21.9 Gastro-esophageal reflux disease without esophagitis; E11.22 Type 2 diabetes mellitus with diabetic chronic kidney disease; N18.2 Chronic kidney disease, stage 2 (mild); Z79.82 Long term (current) use of aspirin; Z95.810 Presence of automatic (implantable) cardiac defibrillator; Z79.899 Other long term (current) drug therapy; Z79.4 Long term (current) use of insulin; Z91.118 Patient's noncompliance with dietary regimen for other reason